=== PATIENT | female | born 1985 | race Caucasian/White ===

== ENCOUNTER 2018-05-20 22:34 | Emergency (ER) | payer OTHER ==
[~2018-05-20] VITALS: Ht 172.7 cm; Wt 97.5 kg
[~2018-05-20 22:34] MED LIST: ACETAMINOPHEN-1 EAC1 PO; ACETAMINOPHEN325 M1 PO; MEDROXYPROGESTERONE; NAPROSYN500 MG PO; NOHOMEMEDICATIONS; PERCOCET 7.5-31 EACH; PRENATAL
[2018-05-20] MEDS ORDERED: IBUPROFEN 400400 M2 PO (22:41)
[2018-05-21] MEDS ORDERED: LIDOCAINE VISC100 ML MUCOUS MEM (00:44)
[2018-05-21] MEDS ORDERED: AMOXICILLIN 50500 M1 PO (00:44)
== END 2018-05-21 01:11 | disposition home or self-care (01) ==
LOC: ER 22:34
DX: K02.9 Dental caries, unspecified (principal); K12.1 Other forms of stomatitis; F41.9 Anxiety disorder, unspecified; F17.210 Nicotine dependence, cigarettes, uncomplicated

== ENCOUNTER 2021-06-06 23:12 | Emergency (ER) | payer OTHER ==
[~2021-06-06] VITALS: Ht 172.7 cm; Wt 90.7 kg
[~2021-06-06 23:12] MED LIST changes: +AMOXICILLIN 50500 M1 PO; +IBUPROFEN 400400 M2 PO; +LIDOCAINE VISC100 ML MUCOUS MEM
[2021-06-06 23:14] VITALS: BP 119/81
== END 2021-06-07 01:53 | disposition left against medical advice (07) ==
LOC: ER 23:12
DX: Z53.21 Procedure and treatment not carried out due to patient leaving prior to being seen by health care provider (principal); F41.9 Anxiety disorder, unspecified; M24.674 Ankylosis, right foot; F17.210 Nicotine dependence, cigarettes, uncomplicated